=== PATIENT | male | born 1960 | race Caucasian/White ===

== ENCOUNTER → 2016-03-17 | Day surgery (SDC) | payer OTHER ==
[2016-02-19 14:46] VITALS: Ht 190.5 cm; Wt 72.3 kg
[~2016-03-17] VITALS: Ht 190.5 cm; Wt 72.3 kg
[~2016-03-17] MED LIST: ALBUTEROL HFA 8 GM INHALER INH ONE; ALBUTEROL HFA INHALER 8.5 GM INH ONE; ATROPINE SULFATE 0.1 MG/ML 5ML SYR IV PRN; CEFAZOLIN 1000MG/55 ML D5W IV SCH; CHOL2000 PO; DEXAMETHASONE SOD INJ 4 MG/ML VIAL ONE; EpHEDrine SULFATE INJ 50 MG/ML AMP IV PRN; EpINEphrine INJ 1MG/ML AMP 1 MG/ML AMP ONE; FENTANYL CITRATE INJ 50 MCG/1 ML 2 ML VIAL IV PRN; FENTANYL CITRATE INJ 50 MCG/1 ML 2 ML VIAL ONE; GLYCOPYRROLATE INJ 0.2 MG/ML VIAL ONE; IBUP-1050 PO; LACTATED RINGER'S 1000ML 1,000 ML IV SCH; LIDOCAINE HCL 2% 2 ML VIAL (20MG/ML) ONE; LIDOCAINE/EPINEPHRINE 1% INJ 50 ML VIAL ONE; MIDAZOLAM HCL 1 MG/ML 2ML VIAL ONE; MULT-923 PO; MoRPHine SULFATE 2 MG/ML CARP IV PRN; MoRPHine SULFATE 4 MG/ML 1 ML CARP\\VIAL IV PRN; NEOSTIGMINE METHYLSULFATE 5 MG/5 ML SYR ONE; OMEP20CA59 PO; ONDANSETRON INJ 2 MG/ML 2 ML VIAL IV PRN; ONDANSETRON INJ 2 MG/ML 2 ML VIAL ONE; OXYC1TAB3 PO; OXYCODONE/ACETAMINOPHEN 5-325 TAB PO PRN; PROPOFOL IV EMULSION 10 MG/ML 20 ML VIAL IV ONE; ROCURONIUM BROMIDE 10 MG/ML 5 ML VIAL ONE; ROPIVACAINE 0.5% 5 MG/ML 30 ML VIAL ONE; SODIUM CHLORIDE 0.9% 1000ML 1,000 ML IV SCH
--- NOTE | 2016-03-17 10:20 | History & Physical Bridge Note ---
H&P Re-Evaluation Bridge Note: I have examined the patient, reviewed the History & Physical and in the interval since the performance of the History & Physical I have noted the following changes of clinical significance: No changes noted
--- NOTE | 2016-03-17 13:01 | [facility] Post Operative Brief Note ---
Immediate Operative Summary Operative Date Mar 17, 2016. Pre-Operative Diagnosis Right Shoulder Impingement, AC arthritis Post-Operative Diagnosis same, partial cuff tear Procedure(s) Performed debridement partial cuff tear, arthroscopic acromioplasty, open distal claicle excision Surgeon Dr. Melba Conn Relay Shop Supervisor Surgeon(s) Dr. Gutierrez Garcia, Den Beaver, MSIII Estimated Blood Loss minimal Findings as above Specimens none Drains 0 Anesthesia LMA with block Complication(s) None Disposition Recovery Room / PACU
--- NOTE | 2016-03-17 13:24 | Discharge Instructions-SurgCtr ---
Discharge Instructions Visit Reason for Visit: Right Shoulder Impingement Discharge Discharge Diagnosis / Problem: Right shoulder subacromia decompression distal clavicle excision Discharge Goals Goal(s): Decrease discomfort, Improve function, Increase independence Medications Stopped Medications Name(s): Ibuprofen. Last dose couple days ago. Activity Recommendations Activity Limitations: per Instructions/Follow-up section The following are instructions to follow after "Shoulder Surgery" including, Acromioplasty, Rotator Cuff Repair and Instability Surgery ACTIVITY RECOMMENDATIONS: * Minimize activity after surgery. * No excessive walking, jogging, sports or laboring. * Return to activity is individualized depending on the patient and type of surgery. * Driving is not permitted until at least your first post operative visit. Please ask your doctor when it is safe to resume driving. * Expect increased discomfort with increased activity. Continue to ice the shoulder as needed. SCHOOL/WORK RECOMMENDATIONS: * You may return to sedentary work or school when you are feeling more comfortable. This is usually 3-7 days after surgery. MEDICATIONS: * You will have a prescription for pain medication and an anti-inflammatory medication after surgery. * Use the pain medication for severe pain and the anti-inflammatory for less severe pain. Once the pain medication has run out, try to use the anti-inflammatory medication. If this is not effective, contact the office for assistance. * The pain medication may cause nausea, constipation and drowsiness. You should see how they affect you before driving or similar activity. * The anti-inflammatory medication may cause stomach upset and bleeding. If this occurs let your doctor know immediately . * Take a stool softener like Colace or a laxative like Senokot to prevent constipation. DIET: * Resume previous diet. SPECIAL CARE: ICE: You have the option of an ice cooler, gel packs or ice bags. * If you have an ice cooler, refer to the instructions for that device. The ice cooler may be used continuously. * If you do not have an ice cooler, you will need to use ice bags or gel packs. Do not apply ice directly to the skin. Use a thin dressing or velia shirt between the skin and ice bag. Apply ice for 20-30 minutes and repeat every 2-4 hours. This is especially important for the first 7-10 days after surgery. Once the pain improves, use ice as needed. ELEVATION: * You may be more comfortable sleeping in an upright position. Use the sling to elevate your arm. DRESSING: * Your dressing will be changed at your first therapy appointment approximately 4-5 days after surgery. Band-aids, tape strips or gauze may be applied. You may then change your dressing daily. * Reapply dressing followed by the EBIce cooling pad (if chosen) and then the sling. * Always wash your hands prior to touching the incision area. * Once the stitches are removed, you may leave the wound open to air or cover with gauze. * Expect some bloody drainage for the first few days after surgery. * Leave the tape strips, if present, in place for 5-7 days. * Band-aids and gauze may be changed daily. * There may be a gauze pad in your armpit area. This can be changed daily or replaced by a dry washcloth. SLING/BRACE: * You will need to use a sling or brace after surgery. The length of time the sling is used is dependent upon the type of surgery performed. * Arthroscopic Acromioplasty requires use of the sling for 2-4 weeks for comfort. * Labral procedures and Rotator Cuff Repairs require use of the sling for a longer period of time. Please check with your doctor prior to discontinuing the sling. BATHING: * You may shower or sponge-bathe immediately after surgery. The post operative shoulder dressing is mostly water-tight. You may shower right over this dressing, but be reasonably careful not to get the gauze or incision wet. * Once the dressing has been changed on the fourth or fifth day after surgery, you may shower and get the incision wet. * Wash with regular soap and water. * Do not bathe (submerge the incision), soak, swim or use a hot tub until the incision is completely healed over with normal skin and the doctor has given the OK to proceed. * There is no need to apply any ointments, powders or salves to your incision. * Do not apply alcohol or hydrogen peroxide directly to the incision. * Diluted peroxide (50:50 mixture with sterile saline) may be used to clean dried blood from around the incision area. THERAPY: * You will begin therapy four or five days after surgery. * Organized therapy with the therapist is important for the first 2-4 months after surgery depending on the type of procedure. During that time you will attend therapy 1-3 times per week. * You will also need to do daily exercises for range of motion and strength as instructed. * Patients who have a Capsular Shift Procedure will need to abide by temporary range of motion limitations. * Patients having Rotator Cuff Surgery are not allowed to actively lift their arms until 4-6 weeks after surgery. * Please check with your doctor regarding appropriate motion restrictions. FOLLOW UP VISIT: * Follow up with Dr. Conn on 03/29/16 * Follow up with Physical Therapy 4-5 days after surgery. * If not already scheduled, please call the office at to schedule a follow-up appointment for 10 days after surgery and monthly thereafter. Anesthesia . Post Anesthesia Instructions: If you have had General Anesthesia or IV Sedation: * Do not drive today. * Resume driving when surgeon permits. * Do not make important decisions or sign legal documents today. * Call surgeon for: 1. Temperature elevations greater than 101 degrees F. 2. Uncontrollable pain. 3. Excessive bleeding. 4. Persistent nausea and vomiting. 5. Medication intolerance (nausea, vomiting or rash). * For nausea and vomiting use only clear liquids such as: tea, soda, bouillon until nausea subsides, then gradually increase diet as tolerated. * If you have any concerns or questions, call your surgeon's office. If physician is unavailable and it is an emergency, call 911 or go to the nearest emergency room. . Procedures Procedures Performed: debridement partial cuff tear, arthroscopic acromioplasty, open distal claicle excision Pending Studies Studies pending at discharge: no Medical Emergencies . Who to Call and When: Medical Emergencies: If at any time you feel your situation is an emergency, please call 911 immediately. . Non-Emergent Contact Non-Emergency issues call your: Surgeon Call Non-Emergent contact if: you have a fever, your pain is not controlled, wound has increased drainage . . "Provider Documentation" section prepared by Randall Ernst.
--- NOTE | 2016-03-17 13:26 | [facility] Post Operative Brief Note ---
Immediate Operative Summary Operative Date Mar 17, 2016. Pre-Operative Diagnosis Right Shoulder Impingement, AC arthritis Post-Operative Diagnosis same, partial cuff tear Procedure(s) Performed debridement partial cuff tear, arthroscopic acromioplasty, open distal claicle excision Surgeon Dr. Melba Conn Malt Specifications Control Assistant Surgeon(s) Dr. Gutierrez Garcia, Den Beaver, MSIII Estimated Blood Loss minimal Specimens A. Distal Clavicle Complication(s) None Disposition PCU
--- NOTE | 2016-03-17 14:44 | Medical Student: [facility] ---
Immediate Operative Summary Operative Date Mar 17, 2016. Pre-Operative Diagnosis Right shoulder impingement, Arthritis of right acromioclavicular joint Post-Operative Diagnosis Same Procedure(s) Performed Debridement of partial right rotator cuff tear, arthroscopic acromioplasty, open distal clavicle excision Surgeon Silvano Conn MD Economic Historian Surgeon(s) Randall Miller MD Estimated Blood Loss Minimal Findings Partial thickness tear of R rotator cuff Subacromial bursitis Arthropathy of R AC joint Specimens Right distal clavicle Drains None Complication(s) None Disposition Recovery Room / PACU
[2016-03-17 14:52] VITALS: BP 109/72; PULSE 73; TEMP 36.4; O2SAT 94
--- NOTE | 2016-03-17 14:56 | Anesthesia Progress Nt - [facility] ---
Anesthesia Post Op Note Date & Time Mar 17, 2016 at 14:56 Vital Signs Pain Intensity: 0 Vital Signs Past 12 Hours Date Time Temp Pulse Resp B/P Pulse Ox O2 Delivery O2 Flow Rate FiO2 03/17/16 14:20 36.2 57 16 118/75 96 Room Air 03/17/16 14:05 55 9 97 03/17/16 14:05 52 9 03/17/16 14:03 107/75 03/17/16 14:01 36.5 73 20 107/75 96 Room Air 03/17/16 14:00 65 13 03/17/16 14:00 65 13 95 03/17/16 13:58 117/71 03/17/16 13:55 64 16 03/17/16 13:55 64 16 93 03/17/16 13:53 121/71 03/17/16 13:50 62 11 96 03/17/16 13:50 62 11 03/17/16 13:48 110/72 03/17/16 13:45 60 18 100 03/17/16 13:45 59 18 03/17/16 13:43 109/66 03/17/16 13:40 56 19 100 03/17/16 13:40 55 19 03/17/16 13:38 108/65 03/17/16 13:35 50 13 100 03/17/16 13:35 51 13 03/17/16 13:34 115/53 03/17/16 13:30 57 15 100 03/17/16 13:30 56 15 03/17/16 13:29 115/62 03/17/16 13:25 61 15 03/17/16 13:25 61 15 100 03/17/16 13:23 135/72 03/17/16 13:22 36.3 68 20 114/71 98 Diffusion Mask 6 03/17/16 13:21 114/71 03/17/16 10:35 68 97 03/17/16 10:35 67 03/17/16 10:34 68 9 98 03/17/16 10:34 67 9 03/17/16 10:33 62 14 03/17/16 10:33 65 14 122/75 99 03/17/16 10:31 125/86 03/17/16 10:28 4 03/17/16 10:28 69 4 03/17/16 10:27 62 7 03/17/16 10:27 7 03/17/16 10:22 5 03/17/16 10:22 64 5 03/17/16 10:08 129/76 03/17/16 10:08 36.2 63 18 121/77 97 Room Air Notes Mental Status: alert / awake / arousable, participated in evaluation Pt Amnestic to Procedure: Yes Nausea / Vomiting: adequately controlled Pain: adequately controlled Airway Patency, RR, SpO2: stable & adequate BP & HR: stable & adequate Hydration State: stable & adequate Anesthetic Complications: no major complications apparent
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
== END | disposition home or self-care (01) ==
LOC: X.SURG 10:00
PROVIDERS: ATTEND Physical Medicine & Rehabilitation Sports Medicine
DX: S43.101A Unspecified dislocation of right acromioclavicular joint, initial encounter (principal); M19.011 Primary osteoarthritis, right shoulder; M75.41 Impingement syndrome of right shoulder; V89.2XXA Person injured in unspecified motor-vehicle accident, traffic, initial encounter; F17.200 Nicotine dependence, unspecified, uncomplicated; Z98.890 Other specified postprocedural states; K21.9 Gastro-esophageal reflux disease without esophagitis; J44.9 Chronic obstructive pulmonary disease, unspecified; Z82.49 Family history of ischemic heart disease and other diseases of the circulatory system; Z82.3 Family history of stroke; Z83.3 Family history of diabetes mellitus

== ENCOUNTER → 2016-03-29 | Outpatient (CLI) | payer OTHER ==
[~2016-03-29] MED LIST changes: -ALBUTEROL HFA 8 GM INHALER INH ONE; -ALBUTEROL HFA INHALER 8.5 GM INH ONE; -ATROPINE SULFATE 0.1 MG/ML 5ML SYR IV PRN; -CEFAZOLIN 1000MG/55 ML D5W IV SCH; -DEXAMETHASONE SOD INJ 4 MG/ML VIAL ONE; -EpHEDrine SULFATE INJ 50 MG/ML AMP IV PRN; -EpINEphrine INJ 1MG/ML AMP 1 MG/ML AMP ONE; -FENTANYL CITRATE INJ 50 MCG/1 ML 2 ML VIAL IV PRN; -FENTANYL CITRATE INJ 50 MCG/1 ML 2 ML VIAL ONE; -GLYCOPYRROLATE INJ 0.2 MG/ML VIAL ONE; -LACTATED RINGER'S 1000ML 1,000 ML IV SCH; -LIDOCAINE HCL 2% 2 ML VIAL (20MG/ML) ONE; -LIDOCAINE/EPINEPHRINE 1% INJ 50 ML VIAL ONE; -MIDAZOLAM HCL 1 MG/ML 2ML VIAL ONE; -MoRPHine SULFATE 2 MG/ML CARP IV PRN; -MoRPHine SULFATE 4 MG/ML 1 ML CARP\\VIAL IV PRN; -NEOSTIGMINE METHYLSULFATE 5 MG/5 ML SYR ONE; -ONDANSETRON INJ 2 MG/ML 2 ML VIAL IV PRN; -ONDANSETRON INJ 2 MG/ML 2 ML VIAL ONE; -OXYCODONE/ACETAMINOPHEN 5-325 TAB PO PRN; -PROPOFOL IV EMULSION 10 MG/ML 20 ML VIAL IV ONE; -ROCURONIUM BROMIDE 10 MG/ML 5 ML VIAL ONE; -ROPIVACAINE 0.5% 5 MG/ML 30 ML VIAL ONE; -SODIUM CHLORIDE 0.9% 1000ML 1,000 ML IV SCH
== END | disposition home or self-care (01) ==
LOC: C.RDSM 10:00
PROVIDERS: ATTEND Physical Medicine & Rehabilitation Sports Medicine
DX: M75.41 Impingement syndrome of right shoulder (principal)